=== PATIENT | male | born 1945 | race Caucasian/White ===

== ENCOUNTER 2017-04-28 18:45 | Inpatient (IN) | payer MEDICARE, MEDICAID ==
[2017-04-28 19:46] LABS: HEMATOCRIT 33.6 % (41.0-60); HEMOGLOBIN 11.3 gm/dL (12-16); LYMPHOCYTE ABSOLUTE 0.5 Th/cmm (1.5-3.0); MANUAL DIFF REQUIRED? YES; MEAN CELL VOLUME 86.7 fl (80-99); MEAN CORPUSCULAR HGB CONC 33.5 pg (28.0-36.0); MEAN PLATELET VOLUME 7.8 fl; MONOCYTE ABSOLUTE 0.7 Th/cmm (0.3-1.0); NEUTROPHILE ABSOLUTE 12.4 Th/cmm (1.8-8.0); PLATELET COUNT 255 Th/cmm (150-400); RED BLOOD COUNT 3.88 Mil/cmm (3.80-5.80)
[2017-04-28 19:48] LABS: WHITE BLOOD COUNT 13.6 Th/cmm (4.8-10.8)
[2017-04-28 20:00] LABS: ALB/GLOB RATIO 0.9 (1.0-1.8); ALBUMIN 2.7 gm/dL (4.2-5.5); ALKALINE PHOSPHATASE 111 U/L (34-104); BILIRUBIN,TOTAL 0.3 mg/dL (0.3-1.0); BUN - UREA NITROGEN 19 mg/dL (7-25); CARBON DIOXIDE 24.8 mEq/L (21.0-31.0); CHLORIDE 103 mEq/L (98-107); CREATININE - SERUM 0.5 mg/dL (0.7-1.3); GLUCOSE 209 mg/dL (70-105); SGOT 30 U/L (13-39); SGPT/ALT 53 U/L (7-52); SODIUM SERUM 133 mEq/L (136-145); TOTAL PROTEIN,SERUM 5.8 gm/dL (6.0-8.3)
[2017-04-28] MEDS ORDERED: Piperacillin Sodium/Tazobact 3.375 gm Vial IV ONE (20:03)
[2017-04-28 20:07] LABS: POTASSIUM SERUM 2.8 mEq/L (3.5-5.1)
[2017-04-28] MEDS ORDERED: Levofloxacin 500mg/100mL 500 MG/100 ML BAG IV ONE ×2 (20:12→20:31)
[2017-04-28 20:14] LABS: LYMPHOCYTE 7 % (20-50); MONOCYTE 4 % (2-10); NEUTROPHILS 89 % (40-80); PLATELET ESTIMATE ADEQUATE (NORMAL)
[2017-04-28] MEDS ORDERED: Sodium Chloride 0.9% 500 ML IV ONE (20:14)
[2017-04-28] MEDS ORDERED: Sodium Chloride 0.9% 1,000 ML IV ONE ×2 (20:24→20:35)
[2017-04-28 20:26] LABS: URINE MICROSCOPIC INDICATED? YES; URINE SOURCE MIDSTREAM
[2017-04-28 20:35] LABS: URINE BILIRUBIN NEGATIVE (NEGATIVE); URINE BLOOD NEGATIVE (NEGATIVE); URINE GLUCOSE (UA) 250 mg/dL (NEGATIVE); URINE KETONE TRACE mg/dL (NEGATIVE); URINE LEUKOCYTE ESTERASE NEGATIVE (NEGATIVE); URINE NITRATE POSITIVE (NEGATIVE); URINE PROTEIN 30 mg/dL (NEGATIVE)
[2017-04-28 20:42] LABS: URINE BACTERIA MANY /hpf (NONE SEEN); URINE CLARITY SLIGHTLY HAZY (CLEAR); URINE COLOR YELLOW; URINE EPITHELIAL CELLS FEW /lpf (FEW); URINE RBC NONE SEEN /hpf (0-5)
[2017-04-28] MEDS ORDERED: Potassium Chloride 20 mEq ER Tab PO ONE ×2 (22:23→22:30)
--- NOTE | 2017-04-28 22:35 | Transfer Summary ---
DATE OF TRANSFER: EMERGENCY ROOM EVALUATION AND TREATMENT ATTENDING PHYSICIAN: Dr. David Oneill DENTIST: [facility]. HISTORY OF PRESENT ILLNESS: The patient came [facility] the ER from a jail, I believe from ____ place. The patient was sent by his primary MD, Dr. Hernandez or so. I cannot read that, but I will tell you findings. The patient was sent here because of the patient has a little redness around the left coccyx area and the patient has a low grade fever and he was sent over here for evaluation and treatment. The patient has cerebral palsy. The patient is completely bedridden status. The patient can lift the left arm. The right arm, he cannot lift, but he has contractures in the right arm. Both lower extremities, he can hardly lift. He does not himself as any complaint. He does answer questions, but does not know why he was brought over here. History of present illness essentially same as mentioned above, nothing new to mention. The patient has some bowel sounds according to them, but there was no ulcer when they took the pictures. It is just a little stage I ulcer was noted. REVIEW OF SYSTEMS: EYES: No history of double vision, blurring, or blindness. CENTRAL NERVOUS SYSTEM: History of cerebral palsy, mental retardation, but the patient does answer some questions. The patient never had any seizure problem. He is always bedridden status. There is no tumor, seizure disorder. ENDOCRINE: No diabetes mellitus. There is no hypo or hyperthyroidism. ENT: No problems of ear pain or mastoiditis. NECK: No evidence of any lymphadenopathy, meningeal signs, etc. GASTROINTESTINAL: Negative GI barajas. No history of any GERD, peptic ulcer disease, inflammatory bowel disease, diarrhea, constipation, Crohn's disease, or ulcerative colitis. HEART: No history of angina pectoris, myocardial infarction, rheumatic fever, valvular heart disease, pericardial disease. BONES AND JOINTS: Contractures are seen, bedridden status is seen, adequately built, but poorly nourished. Seriously seeing. The patient's costovertebral angle is normal. LABORATORY DATA: We got some lab workup done. Thanks to Samuel, our expert nurse here, good in helping, good in cooperating, we will need more nurses like him. Anyway, the white count was 13.6, hemoglobin is 11.3, hematocrit is 33.6, and platelet count is 255,000. Triage nurse took vital signs showing temperature of 99.5, pulse of 24, respirations 108, blood pressure 139/64, and oxygen saturation 94. No other history is available. PSA yearly in May to be done and the patient's CBC, CMP to be done every 6 months according to the orders from the jail or wherever he is staying. The patient lives in [address] [place] [address]. Admitted from [facility]. His father's name is Heath Mo and mother's name is Lyn Retana. The patient's attending physician is Dr. David Oneill. [facility] is his dentistry. The patient originally carries diagnosis of mild intellectual disability and cerebral palsy. CURRENT MEDICATIONS: The patient was taking included alendronate sodium, ferrous sulfate, multivitamin, oyster shell, Tylenol, vitamin C etc. PHYSICAL EXAMINATION: GENERAL: As already mentioned. CHEST: Clear. Trachea being central. Fairly good air entry in both lungs with emphysematous chest. EYES: Normal eye as I mentioned. No nystagmus is seen. Pupils are equal, reacting to light. CENTRAL NERVOUS SYSTEM: Cerebral palsy and intellectual disability is noted. He does answer questions. HEART: Normal heart sounds. No fourth heart sound. No abnormal murmur, click, or rub. ABDOMEN: Soft, benign and negative. On the left gluteal area, coccyx area, there is some redness, stage 1 ulcer is noted. The patient's other medications that he was taking include alendronate, which is to increase the calcium in the body. The patient was on Fosamax probably has enlarged prostate. WBC increased might be secondary to urinary tract infection secondary to prostatitis. This is the usual etiology in men who have enlarged prostate, urinary tract infection is coming from prostate to start with. The patient is also taking ferrous sulfate, oyster shell, juice and other things and regular large portion diet, ____ breakfast juice, etc. The patient's other diagnosis includes at discharge intellectual disability, cerebral palsy, elevated WBC, protein calorie malnutrition, and hypocalcemia. White count is 13.6. Urine culture has been ordered and we will give the patient piperacillin and maybe we will give the patient one dose of vancomycin to see if there is anything else is cooking. I do not think he needs vancomycin because the problem is most likely is in the urine unless the patient had MRSA or something like that cooking, then we will give that thing, but right now just Zosyn would be enough to give. If pseudomonas is suspected, then the patient may need Levaquin to be given, that is a possibility, so let me give some Levaquin to the patient. I will give some intravenous fluids to the patient. We will give some IV fluids also to the patient. Clinical indication to give antibiotic for suspected infection, most likely from the urine. We will give 500 mL of normal saline to him because he looks to be dehydrated. JOB# [id number]
[2017-04-28] MEDS ORDERED: Cefepime 1 GM in Sodium Chloride 0.9% 50 ML IV ONE (22:45)
[2017-04-29] MEDS: Sodium Chloride 0.9% 1,000 ML IV SCH (00:18)
[2017-04-29] MEDS ORDERED: Pneumococcal Vaccine 0.5 mL Vial IM ONE (01:22)
[2017-04-29 03:07] VITALS: BP 145/70
[2017-04-29 06:47] LABS: HEMATOCRIT 31.8 % (41.0-60); HEMOGLOBIN 10.6 gm/dL (12-16); MEAN CELL VOLUME 86.6 fl (80-99); MEAN CORPUSCULAR HEMOGLOBIN 28.9 pg (27.0-31.0); MEAN CORPUSCULAR HGB CONC 33.4 pg (28.0-36.0); MEAN PLATELET VOLUME 7.9 fl; PLATELET COUNT 265 Th/cmm (150-400); RED BLOOD COUNT 3.67 Mil/cmm (3.80-5.80); RED CELL DISTRIBUTION WIDTH 16.7 % (11.5-20.0)
[2017-04-29 06:50] LABS: WHITE BLOOD COUNT 7.4 Th/cmm (4.8-10.8)
[2017-04-29 07:04] LABS: ALB/GLOB RATIO 0.8 (1.0-1.8); ALBUMIN 2.4 gm/dL (4.2-5.5); ALKALINE PHOSPHATASE 94 U/L (34-104); ANION GAP 6.4 (7.0-16.0); BILIRUBIN,TOTAL 0.4 mg/dL (0.3-1.0); BUN - UREA NITROGEN 11 mg/dL (7-25); CALCIUM SERUM 7.6 mg/dL (8.6-10.3); CARBON DIOXIDE 25.7 mEq/L (21.0-31.0); CHLORIDE 110 mEq/L (98-107); CHOLESTEROL 71 mg/dL (<200); CREATININE - SERUM 0.5 mg/dL (0.7-1.3); HDL -HIGH DENSITY LIPOPROTEIN 19 mg/dL (23-92); MAGNESIUM 2.1 mg/dL (1.9-2.7); POTASSIUM SERUM 3.1 mEq/L (3.5-5.1); SGOT 23 U/L (13-39); SGPT/ALT 42 U/L (7-52); SODIUM SERUM 139 mEq/L (136-145); TOTAL PROTEIN,SERUM 5.4 gm/dL (6.0-8.3); TRIGLYCERIDES 68 mg/dL (<150)
[2017-04-29 07:13] LABS: GLUCOSE 103 mg/dL (70-105)
[2017-04-29 07:56] LABS: ESR SEDIMENTATION SED RATE 85 mm/hr (0-20)
--- NOTE | 2017-04-29 08:29 | Diagnostic Imaging Report ---
CHEST X-RAY: AP view INDICATION: Pneumonia COMPARISON: None FINDINGS: Low lung volume are seen with chronic lung changes and increased interstitial lung markings particularly of the lung bases. Heart size cannot be well assessed on this exam. Degenerative change of the spine are noted with scoliosis with what appear to be loss of height of a lower thoracic vertebral body. Postsurgical changes of the upper abdomen are noted. Nonspecific findings 5 mm calcification is seen projecting along the right lung base. IMPRESSION: Increased interstitial lung markings. A marginal degree of congestion cannot be excluded. Please correlate clinically Bibasal atelectasis versus infiltrates. Postsurgical changes of the upper abdomen.
[2017-04-29 08:41] LABS: MANUAL DIFF REQUIRED? YES
[2017-04-29 08:42] LABS: BAND NEUTROPHILE 3 % (0-10); LYMPHOCYTE 10 % (20-50); MONOCYTE 4 % (2-10); NEUTROPHILS 83 % (40-80); PLATELET ESTIMATE ADEQUATE (NORMAL); TOTAL CELLS COUNTED 100
[2017-04-29] MEDS: Cefepime 1 gm in 0.9% NS 50 mL IV SCH ×2 (08:51→21:07)
[2017-04-29] MEDS ORDERED: Potassium Chloride 20 mEq ER Tab PO ONE (12:00)
--- NOTE | 2017-04-29 12:39 | History & Physical ---
ADMIT DATE: 04/29/2017 CHIEF COMPLAINT: Fever and left coccygeal redness. HISTORY OF PRESENT ILLNESS: This is a 71-year-old gentleman with history of intellectual disability, osteoporosis and chronic anemia, who presented to the ED with the above-mentioned complaints. He lives at a local [facility] ([facility]) and is under the care of Dr. Hernandez. He also has a history of cerebral palsy and has been doing relatively well until a couple of days ago when he was noted to have low-grade temperatures and body aches. At ED, pertinent findings included a white count of 13.6 with 89% neutrophils, a potassium of 2.8, sodium 133, lactic acid level of 2.58 and a UA consistent with a UTI. CXR findings were c/w atelectasis vs infiltrates. The patient has been admitted to the telemetry [facility] for further management and care. PAST MEDICAL HISTORY: As noted above. PAST SURGICAL HISTORY: Unknown. FAMILY HISTORY: Likely noncontributory to this admission. SOCIAL HISTORY: No tobacco, ETOH, or illicit drug usage. He lives at a fci. ALLERGIES: NKDA. OUTPATIENT MEDICATIONS: Tylenol 650 q. 4 hours p.r.n. for pain, Fosamax 70 mg q. weekly, ascorbic acid 500 mg q. daily, calcium with vitamin D 1 tab b.i.d., iron sulfate 325 mg b.i.d., multivitamins and minerals q. daily. REVIEW OF SYSTEMS: CONSTITUTIONAL: Generalized weakness and tiredness, fever, chills. CARDIAC: Denies any chest pain, palpitations. PULMONARY: No cough or phlegm production. GASTROINTESTINAL: No bowel habit changes. GENITOURINARY: Mild dysuria. PHYSICAL EXAMINATION: VITAL SIGNS: Temperature 97.5, T-max is 99.5, pulse 79, respirations 17, BP 137/66, and satting 95% on room air. GENERAL: He is a thin, mentally disabled gentleman with contractions, who is awake, able to answer very simple questions with yes and no. He appears to be in no distress. HEAD AND NECK: Normocephalic and atraumatic. Pupils are reactive to light. Extraocular movements are intact. Oropharynx is somewhat dry. CARDIAC: Regular rate and rhythm without any murmurs. LUNGS: Clear to auscultation bilaterally. ABDOMEN: Soft, supple, nontender, nondistended, normoactive bowel sounds. LOWER EXTREMITIES: No pedal edema. COCCYX-rash on the buttock area-very superficial with no open wounds or discharge. LABORATORY DATA: White count 13.6, H and H 11/33 with 89% neutrophils and a platelet count of 255. Sodium 133, potassium 2.8, BUN 19, creatinine 0.5. Lactic acid repeat 0.74. LFTs; ALT 53, AST 30, alk phos 111. UA is positive for nitrites, positive for glucose and many bacteria. DIAGNOSTICS: X-ray; 1. Increase in interstitial lung markings. A marginal degree of congestion cannot be excluded. 2. Bibasilar atelectasis versus infiltrates. 3. Postsurgical changes of the upper abdomen. IMPRESSION: 1. Sepsis with culprits likely urinary tract infection and possible atelectasis/pneumonia. 2. Urinary tract infection. 3. Elevated lactic acid level. 4. Bilateral lower lobe atelectasis versus infiltrates. 5. Hyponatremia. 6. Hypokalemia. 7. History of mental or intellectual disability. 8. History of osteoporosis. PLAN: The patient has been admitted to the telemetry floor where he has been placed on IV antibiotics, IV fluids and has been pancultured. We will monitor his labs including electrolytes and cultures, and I will ask for a repeat x-ray in the morning. JOB# [id number] EVAN
[2017-04-29] MEDS: Multivitamin w/ Minerals Tab PO SCH (12:53)
[2017-04-29 17:49] LABS: A1C % 4.9 % (4.0-6.0)
[2017-04-29] MEDS: Ferrous Sulfate 325 MG TAB PO SCH (17:53)
[2017-04-29] MEDS: Calcium Carb/Vit D 500 mg/200 U Tab PO SCH (17:53)
[2017-04-30 07:05] LABS: % BASOPHILS 0.1 % (0.0-2.0); % EOSINOPHILS 0.9 % (0.0-5.0); % LYMPHOCYTES 12.1 % (20.0-50.0); % MONOCYTES 8.6 % (2.0-10.0); % NEUTROPHILS 78.3 % (40.0-80.0); EOSINOPHILE ABSOLUTE 0.1 Th/cmm (0.1-0.4); HEMATOCRIT 30.5 % (41.0-60); HEMOGLOBIN 10.2 gm/dL (12-16); LYMPHOCYTE ABSOLUTE 0.9 Th/cmm (1.5-3.0); MEAN CELL VOLUME 86.2 fl (80-99); MEAN CORPUSCULAR HEMOGLOBIN 28.9 pg (27.0-31.0); MEAN CORPUSCULAR HGB CONC 33.5 pg (28.0-36.0); MEAN PLATELET VOLUME 7.9 fl; MONOCYTE ABSOLUTE 0.6 Th/cmm (0.3-1.0); NEUTROPHILE ABSOLUTE 5.8 Th/cmm (1.8-8.0); PLATELET COUNT 315 Th/cmm (150-400); RED BLOOD COUNT 3.54 Mil/cmm (3.80-5.80); RED CELL DISTRIBUTION WIDTH 17.4 % (11.5-20.0); WHITE BLOOD COUNT 7.4 Th/cmm (4.8-10.8)
[2017-04-30 07:27] LABS: ALB/GLOB RATIO 0.8 (1.0-1.8); ALBUMIN 2.3 gm/dL (4.2-5.5); ALKALINE PHOSPHATASE 88 U/L (34-104); BILIRUBIN,TOTAL 0.3 mg/dL (0.3-1.0); BUN - UREA NITROGEN 10 mg/dL (7-25); CALCIUM SERUM 8.3 mg/dL (8.6-10.3); CARBON DIOXIDE 27.6 mEq/L (21.0-31.0); CHLORIDE 112 mEq/L (98-107); CREATININE - SERUM 0.6 mg/dL (0.7-1.3); GLUCOSE 103 mg/dL (70-105); MAGNESIUM 2.1 mg/dL (1.9-2.7); POTASSIUM SERUM 3.6 mEq/L (3.5-5.1); SGOT 22 U/L (13-39); SGPT/ALT 35 U/L (7-52); SODIUM SERUM 140 mEq/L (136-145); TOTAL PROTEIN,SERUM 5.3 gm/dL (6.0-8.3)
--- NOTE | 2017-04-30 08:42 | Diagnostic Imaging Report ---
Portable chest x-ray HISTORY: Increased shortness of breath Compared with prior exam of April 28, 2017, there has developed increased density in the left lower hemithorax with obscuration of the left hemidiaphragm. Findings may be associated with pleural fluid. Underlying pneumonia and/or atelectasis cannot be excluded. Clinical correlation is needed. IMPRESSION: 1. New abnormal changes within the left lower hemithorax. Findings may be associated with pleural fluid. Underlying pneumonia and/or atelectasis cannot be excluded. Clinical correlation needed.
[2017-04-30] MEDS: Cefepime 1 gm in 0.9% NS 50 mL IV SCH ×2 (09:33→21:09)
[2017-04-30] MEDS: Multivitamin w/ Minerals Tab PO SCH (09:34)
[2017-04-30] MEDS: Ferrous Sulfate 325 MG TAB PO SCH ×2 (09:34→17:11)
[2017-04-30] MEDS: Calcium Carb/Vit D 500 mg/200 U Tab PO SCH ×2 (09:34→17:13)
[2017-04-30] MEDS: Albuterol/Ipratropium Neb 3 ML AERS HHN SCH ×3 (11:20→19:27)
[2017-05-01] MEDS: Sodium Chloride 0.9% 1,000 ML IV SCH (04:19)
[2017-05-01 06:00] LABS: % BASOPHILS 0.1 % (0.0-2.0); % EOSINOPHILS 1.5 % (0.0-5.0); % LYMPHOCYTES 8.4 % (20.0-50.0); % MONOCYTES 4.8 % (2.0-10.0); % NEUTROPHILS 85.2 % (40.0-80.0); EOSINOPHILE ABSOLUTE 0.2 Th/cmm (0.1-0.4); HEMOGLOBIN 10.7 gm/dL (12-16); LYMPHOCYTE ABSOLUTE 0.8 Th/cmm (1.5-3.0); MEAN CORPUSCULAR HGB CONC 33.3 pg (28.0-36.0); MONOCYTE ABSOLUTE 0.5 Th/cmm (0.3-1.0); NEUTROPHILE ABSOLUTE 8.6 Th/cmm (1.8-8.0); PLATELET COUNT 356 Th/cmm (150-400); RED BLOOD COUNT 3.68 Mil/cmm (3.80-5.80); RED CELL DISTRIBUTION WIDTH 16.8 % (11.5-20.0); WHITE BLOOD COUNT 10.1 Th/cmm (4.8-10.8)
[2017-05-01 06:06] LABS: ANION GAP 6.5 (7.0-16.0); BUN - UREA NITROGEN 11 mg/dL (7-25); CALCIUM SERUM 8.2 mg/dL (8.6-10.3); CARBON DIOXIDE 26.3 mEq/L (21.0-31.0); CHLORIDE 110 mEq/L (98-107); CREATININE - SERUM 0.5 mg/dL (0.7-1.3); GLUCOSE 97 mg/dL (70-105); MAGNESIUM 2.1 mg/dL (1.9-2.7); POTASSIUM SERUM 3.8 mEq/L (3.5-5.1); SODIUM SERUM 139 mEq/L (136-145)
[2017-05-01] MEDS: Albuterol/Ipratropium Neb 3 ML AERS HHN SCH ×3 (06:56→15:03)
[2017-05-01] MEDS: Cefepime 1 gm in 0.9% NS 50 mL IV SCH (08:24)
[2017-05-01] MEDS: Ferrous Sulfate 325 MG TAB PO SCH ×2 (08:25→17:27)
[2017-05-01] MEDS: Multivitamin w/ Minerals Tab PO SCH (08:25)
[2017-05-01] MEDS: Calcium Carb/Vit D 500 mg/200 U Tab PO SCH ×2 (08:26→17:27)
--- NOTE | 2017-05-02 16:00 | Discharge Summary ---
DATE OF DISCHARGE: 05/01/2017 ADMITTING DIAGNOSES: 1. Sepsis, fever. 2. Elevated lactic acid level 3. Bilateral lower lobe atelectasis/pneumonia. 4. Urinary tract infection. 5. Hyponatremia. 6. Hypokalemia. SECONDARY DIAGNOSES: Include: 1. History of intellectual disability, history of osteoporosis. 2. History of chronic anemia. DISCHARGE DIAGNOSES: 1. Fever, sepsis, clinically stable. 2. Urinary tract infection. 3. Elevated lactic acid level, improved. 4. Bilateral lower lobe pneumonia, clinically stable. CONSULTANTS: No consultants were used during this admission. MAJOR PROCEDURES: No major procedures were done during this admission. BRIEF HOSPITAL COURSE: This is a 71-year-old gentleman with above-mentioned diagnoses presented from [facility] with a fever, lethargy, congestion and redness on the coccygeal area. Pertinent findings on admission included a white count of 13.6 with 89% neutrophils. Potassium level 2.8, sodium 133. Lactic acid level of 2.58, UA consistent with UTI and chest x-rays consistent with atelectasis versus infiltrates. The patient was admitted to the tele [facility]ano and placed on IV antibiotics, IV fluids and he was pancultured. His potassium was repleted and his labs were monitored on a daily basis. By hospital day #2, his white count had improved to a level of 7.4 and his potassium also had improved to a level of 3.1. His lactic acid also decreased to a level 0.74. A followup x-ray on the 30 of April showed left lower lobe hemithorax, which could represent an underlying pneumonia and/or atelectasis. Clinically, the patient remained stable throughout his hospital stay, remaining afebrile since admission. Given his chronicity, the patient was transferred to a long-term acute care at [place] under the care of Dr. Martini. MEDICATIONS ON DISCHARGE: Tylenol 650 every 4 hours p.r.n. for pain, acetylcysteine 20%, 3 mL every 8 hours via handheld nebulizer, DuoNeb every 4 hours while awake. Alendronate 70 mg every weekly, ascorbic acid 500 mg daily, calcium with vitamin D b.i.d., cefepime 1 gram every 12 hours, iron sulfate 325 b.i.d., multivitamins and minerals and NS at 100 mL per hour. CONDITION ON DISCHARGE: Stable. DISPOSITION: As noted above, the patient was transferred to [facility] under the care of Dr. Martini. [facility]# [id number]
== END 2017-05-01 19:15 | DRG 871 ==
LOC: ER 18:45 → TELE 22:25
PROVIDERS: ADMIT Internal Medicine; ATTEND Internal Medicine
DX: A41.9 Sepsis, unspecified organism (principal); J18.1 Lobar pneumonia, unspecified organism; E46 Unspecified protein-calorie malnutrition; E83.51 Hypocalcemia; D64.9 Anemia, unspecified; N39.0 Urinary tract infection, site not specified; E87.1 Hypo-osmolality and hyponatremia; Z68.1 Body mass index [BMI] 19.9 or less, adult; E87.6 Hypokalemia; F79 Unspecified intellectual disabilities; M81.0 Age-related osteoporosis without current pathological fracture; G80.9 Cerebral palsy, unspecified; Z74.01 Bed confinement status
CPT/HCPCS: 36415-UA; 71045-TC; 80048-TC; 80053-TC; 80061-TC; 81001-TC; 83036-90; 83605; 83735-TC; 83880-TC; 84439-90; 84443-TC; 85007-TC; 85025-TC; 85027-TC; 85652-TC; 86141-TC; 87086-90; 94760; J0692; J1956; J2543; J7030; Z7610